=== PATIENT | female | born 1950 | race Caucasian/White ===

== ENCOUNTER 2019-02-08 21:52 | Inpatient (IN) ==
[2019-02-08 22:22] LABS: Basophils # 0.1 K/mm3 (0-0.2); Basophils % 0.3 % (0.1-2.0); Eosinophils % 0.2 % (0.1-12.0); Hematocrit 34.9 % (37.0-47.0); Hemoglobin 10.5 g/dL (12.2-16.2); Lymphocytes # 1.9 K/mm3 (0.7-4.5); Lymphocytes % 10.5 % (10-50); Mean Corpuscular HGB Conc 30.2 g/dL (31.8-35.4); Mean Corpuscular Volume 75.2 fl (81-99); Mean Platelet Volume 7.5 fl (7.4-10.4); Monocytes # 1.8 K/mm3 (0.1-1.0); Monocytes % 10.1 % (1.7-9.3); Neutrophils # 13.9 K/mm3 (1.8-7.8); Neutrophils % 78.8 % (37.0-80.0); Platelet Count 464 K/mm3 (142-424); Red Blood Count 4.64 M/mm3 (4.20-5.40); White Blood Count 17.7 K/mm3 (4.8-10.8)
[2019-02-08 22:32] LABS: Alanine Aminotransferase 17 U/L (12-78); Albumin Level 1.2 gm/dL (3.4-5.0); Albumin/Globulin Ratio 0.2 (1.1-1.8); Alkaline Phosphatase 178 U/L (46-116); Anion Gap 11.4 mEq/L (5-15); Aspartate Amino Transferase 22 U/L (15-37); Bilirubin,Total 0.4 mg/dL (0.2-1.0); Blood Urea Nitrogen 11 mg/dL (7-18); Calcium 7.5 mg/dL (8.5-10.1); Carbon Dioxide 28 mmol/L (21.0-32.0); Chloride 90 mmol/L (98-107); Glucose 240 mg/dL (74-106); Sodium 126 mmol/L (136-145); Total Protein,Serum 7.2 gm/dL (6.4-8.2)
[2019-02-08 22:37] LABS: Anisocytosis 1+; Lymphocytes % 11 % (10-50); Monocytes % 1 % (2-9); Neutrophils % 88 % (42-76); Total Cells Counted 100
[2019-02-08 22:38] LABS: Hypochromasia 1+
[2019-02-09] LABS: C-Reactive Protein 13.7 mg/dL (0.0-0.9)
[2019-02-09 00:03] LABS: Microscopic, Urine URINE MICROSCOPIC (MICROSCOPIC)
[2019-02-09 00:04] LABS: Appearance,Urine CLEAR (Clear); Bilirubin,Urine Negative (Negative); Blood, Urine Negative (Negative); Color,Urine YELLOW (Yellow); Glucose,Urine (UA) Negative (Negative); Ketones,Urine Negative (Negative); Leukocyte Esterase,Urine Negative (Negative); Protein,Urine Negative (Negative); Specific Gravity, Urine 1.015 (1.005-1.030); Urobilinogen,Urine 0.2 EU/dl (0.2)
[2019-02-09 00:05] LABS: Erythrocyte Sedimentation Rate > 140 mm/hr (0-30)
[2019-02-09 00:06] LABS: Bacteria,Urine Trace /lpf; Mucus,Urine 1+ /lpf
--- NOTE | 2019-02-09 01:07 | Emergency Department Note ---
ED Disposition Clinical Impression: Elevated erythrocyte sedimentation rate, VORA (nonalcoholic steatohepatitis), Hyponatremia, Splenomegaly, Portal hypertension, Retroperitoneal lymphadenopathy, HCAP (healthcare-associated pneumonia), Diabetes 1.5, managed as type 2 Sepsis Qualifiers: Sepsis type: sepsis due to unspecified organism Sepsis acute organ dysfunction status: without acute organ dysfunction Qualified Code(s): A41.9 - Sepsis, un specified organism Ascites Qualifiers: Ascites type: other type Qualified Code(s): R18.8 - Other ascites Anemia Qualifiers: Anemia type: unspecified type Qualified Code(s): D64.9 - Anemia, unspecified Disposition: Admitted As Inpatient Condition on Discharge: Fair Referrals: Katheryn Villa APRN [Primary Care Provider] - - Critical Care Critical Care Time: No Attestation: On 02/08/19, the high probability of a clinically significant, sudden or life threatening deterioration of the following system(s) required my full and direct attention, intervention and personal management. The time I documented below is in addition to time spent performing reported procedures but includes the following listed in this critical care notation. Medical Decision Making - Medical Records Medical records reviewed: Yes: I reviewed the patient's medical records. - Ishan Inquiry Pt receiving controlled substance: No Vital Signs: 02/08/19 22:02 02/09/19 00:29 02/09/19 01:07 Temperature 98.8 F Temperature Source Oral Pulse Rate [Right Brachial] 115 H 106 H 102 H Respiratory Rate 18 16 16 Blood Pressure [Right Arm] 134/77 111/65 112/69 Blood Pressure Mean [Right Arm] 96 80 83 Blood Pressure Source [Right Arm] Automatic Cuff Automatic Cuff Automatic Cuff Blood Pressure Position [Right Arm] Sitting Sitting Sitting 02 Sat by Pulse Oximetry 98 95 96 Oxygen Delivery Method Room Air Room Air Room Air - Lab Data Lab results reviewed: Yes: I reviewed the patient's lab results. Lab Results 02/08/19 22:06: WBC 17.7 H, RBC 4.64, Hgb 10.5 L, Hct 34.9 L, MCV 75.2 L, MCH 22.7 L, MCHC 30.2 L, RDW 17.0, Plt Count 464 H, MPV 7.5, Neut % (Auto) 78.8, Lymph % (Auto) 10.5, [place] % (Auto) 10.1 H, Eos % (Auto) 0.2, Baso % (Auto) 0.3, Neut # (Auto) 13.9 H, Lymph # (Auto) 1.9, [place] # (Auto) 1.8 H, Eos # (Auto) 0.0, Baso # (Auto) 0.1, Total Counted 100, Neutrophils % (Manual) 88 H, Lymphocytes % (Manual) 11, Monocytes % (Manual) 1 L, Platelet Estimate Normal, Hypochromasia 1+, Anisocytosis 1+, ESR > 140 H 02/08/19 22:06: Sodium 126 L, Potassium 3.4 L, Chloride 90 L, Carbon Dioxide 28, Anion Gap 11.4, BUN 11, Creatinine 0.89, Estimated Creat Clear 61, Estimated GFR 63, Est GFR ( Amer) 76, Glucose 240 H, Calcium 7.5 L, Total Bilirubin 0.4, AST 22, ALT 17, Alkaline Phosphatase 178 H, Troponin I < 0.02, C-Reactive Protein 13.7 H, Total Protein 7.2, Albumin 1.2 L, Globulin 6.0 H, Albumin/Globulin Ratio 0.2 L 02/08/19 23:25: Urine Color Yellow, Urine Appearance Clear, Urine pH 6.0, Ur Specific [place] 1.015, Urine Protein Negative, Urine Glucose (UA) Negative, Urine Ketones Negative, Urine Blood Negative, Urine Nitrate Negative, Urine Bilirubin Negative, Urine Urobilinogen 0.2, Ur Leukocyte Esterase Negative, Urine WBC 3-5, Urine Bacteria Trace, Hyaline Casts 3-5, Urine Mucus 1+ 02/09/19 00:10: Ammonia 11 L 02/09/19 01:00: Lactate 2.4 H Result diagrams: 02/08/19 22:06 02/08/19 22:06 Orders (Tests/Meds): ED MEDICATIONS Generic Name Dose Route Start Last Admin Trade Name Freq PRN Reason Stop Dose Admin Sodium Chloride 1,000 mls @ 999 mls/hr 02/09/19 00:15 02/09/19 00:03 Sod Chlor 0.9% 1000ml Bag IV 02/09/19 01:15 999 mls/hr .Q1H1M DAMIAN Administration Piperacillin Sod/Tazobactam 100 mls @ 200 mls/hr 02/09/19 01:00 02/09/19 00:59 Sod 4.5 gm/ Sodium Chloride IV 02/23/19 00:59 200 mls/hr Q6H DAMIAN Administration Protocol Levofloxacin/Dextrose 750 mg in 150 mls @ 100 mls/hr 02/09/19 01:15 Levofloxacin 750mg/150ml Premix IV 02/23/19 01:14 Q24H DAMIAN Protocol Discontinued Medications Generic Name Dose Route Start Last Admin Trade Name Freq PRN Reason Stop Dose Admin Enoxaparin Sodium 80 mg 02/09/19 01:13 02/09/19 01:15 Lovenox 80mg/0.8ml Syringe SQ 02/09/19 01:14 80 mg ONCE ONE Administration ORDERS Category Date Time Status CT abdomen pelvis wo con Stat Cat Scan 02/08/19 22:09 Ordered Chest XR 2 view (NOT portable) [XR chest 2V] Stat Exams 02/08/19 22:09 Ordered T4 (Thyroxine) Stat Lab 02/09/19 00:00 Received TSH [Thyroid Stimulating Hormone] Stat Lab 02/09/19 00:00 Received Anaerobic Culture+Gram Stain Routine Micro 02/09/19 01:07 Ordered Blood Culture Stat Micro 02/09/19 00:28 Ordered Body Fluid Cult & Gram Stain Routine Micro 02/09/19 01:07 Ordered Urine Culture Routine Micro 02/09/19 00:36 Ordered - Radiology Data #1 Image(s): Chest Image Reviewed: Yes I reviewed the patient's radiology image Preliminary Findings: Abnormal (possible inflitrate ) - CT Data CT Scan: Abdomen, Pelvis Time Received: 01:[address] Reviewed: Yes: I have viewed the radiologist's interpretation Preliminary Findings: Abnormal (see report) - ECG Data Tracing #1 Arrhythmias present: sinus tach Ischemic changes: non-specific ST-T wave changes Weakness HPI - General Chief complaint: Weakness Stated complaint: ams,wEAKNESS Time Seen by Provider: 02/08/19 22:20 Mode of Arrival: Wheelchair Source of Information: Patient, Relative, Medical Record Limitations: No Limitations Description of Symptoms (Recalled from ER Triage Doc. by RN): Daughter advises pt has been declining for the past couple of weeks, with some confusion and weakness. Advises she has a hx of cirrhoiss and feels like her abd is more swollen and distended also. - History of Present Illness HPI Narrative: pt with hx of decline over the last few days with weakness and dec ambulation - has hx of cirrhosis and rt pleural fluid drainge over the last few months MD Complaint: generalized weakness Onset (ago): day(s) Location: generalized Severity: moderate Associated symptoms: denies other symptoms - Related Data Home Medications Medication Instructions Recorded Confirmed Atorvastatin Calcium [Atorvastatin 40 mg PO DAILY 11/13/18 02/08/19 40mg Tab] Furosemide [Furosemide 20mg Tab] 20 mg PO DAILY 11/13/18 02/08/19 Lactulose [Lactulose 10gm/15ml 10 gm PO DAILY 11/13/18 02/08/19 Oral Soln] Omeprazole [Omeprazole 40mg 40 mg PO DAILY 11/13/18 02/08/19 Capsule] Spironolactone 50 mg PO DAILY 11/13/18 02/08/19 Trimethoprim 100 mg PO DAILY 11/13/18 02/08/19 carvedilol 3.125 mg tablet 3.125 mg PO HS tab 11/24/18 02/08/19 duloxetine 30 mg capsule,delayed 30 mg PO DAILY 11/24/18 02/08/19 release metformin 500 mg tablet 500 mg PO BID 11/24/18 02/08/19 oxybutynin chloride 5 mg tablet 5 mg PO BID PRN 11/24/18 02/08/19 oxycodone 5 mg tablet 5 mg PO Q6H PRN tab 11/24/18 02/08/19 rifaximin 550 mg tablet 550 mg PO BID 11/24/18 02/08/19 ropinirole 2 mg tablet 2 mg PO QHS 11/24/18 02/08/19 Apixaban [Eliquis] 5 mg PO BID 02/08/19 02/08/19 Pregabalin [Lyrica 100mg Cap] 100 mg PO BID 02/08/19 02/08/19 diphenhydrAMINE HCl [Benadryl 25mg 25 mg PO HS 02/08/19 02/08/19 Capsule] Allergies Allergy/AdvReac Type Severity Reaction Status Date / Time codeine Allergy Verified 02/08/19 22:09 meperidine [From Demerol] Allergy Verified 02/08/19 22:09 Sulfa (Sulfonamide Allergy Verified 02/08/19 22:09 Antibiotics) H History - Hepatitis A Screen Drug use history?: No High risk sexual behaviors?: No History of sexually transmitted infection?: No Currently employed?: No Childcare worker?: No Do you have indoor plumbing?: Yes Do you have electricity?: Yes Attestation statement:: This patient has been screened for Hepatitis A risk factors. I have reviewed the patient's past medical history: Yes Medical History: Reports:: Depression, Diabetes Mellitus Type 2, Hyperlipidemia, Hypertension Other Medical History: Reports: Liver Disease Other Surgeries: Yes: No Previous Surgery Amputation: No Fractures: No - Social History Smoking Status: Never smoker Alcohol Intake: never Substance Use Type: denies use Occupational Status: retired Housing: house Household Members: spouse - Psychiatric History Pschychiatric History:: Reports:: Depression Family Hx:: No significant family history ROS Obtained: Yes All systems reviewed & no additional complaints - Constitutional Constitutional: Reports as per HPI, Reports fatigue, Denies fever(s), Denies frequent falls, Reports lethargy, Reports weakness - Eyes Eyes: Denies change in vision - ENT Ears, Nose, Mouth, and Throat: Denies sore throat - Cardiovascular Cardiovascular: Denies chest pain, Reports dyspnea - Respiratory Respiratory: No cough - Gastrointestinal Gastrointestingal: Denies: abdominal pain - Genitourinary Female Genitourinary: Denies hematuria - Musculoskeletal Musculoskeletal: Denies joint pain - Integumentary/Breasts Skin/Breast: Denies rash - Neurologic Neurologic: Denies focal weakness, Denies seizure-like activity Physical Exam - General General appearance: alert - Head Head exam: normocephalic - Eye Eye exam: Present: PERRL, EOMI. Absent: scleral icterus - ENT ENT exam: Present: mucous membranes dry - Neck Neck exam: Present: trachea midline - Respiratory Respiratory exam: Present: other (drainage tube rt ). Absent: respiratory distress - Cardiovascular Cardiovascular exam: Present: regular rate, systolic murmur - Abdominal Exam Abdominal exam: Present: soft, tenderness Abdominal tenderness: Present: diffuse, moderate - Extremities Exam Extremities exam: Present: full ROM. Absent: pedal edema, calf tenderness - Neurological Exam Neurological exam: Present: alert, CN II-XII intact - Psychiatric Psychiatric exam: Present: normal affect - Skin Skin exam: Absent: rash
[2019-02-09 01:40] LABS: Thyroid Stimulating Hormone 11.08 uIU/ml (0.358-3.740)
[2019-02-09 05:43] LABS: Basophils % 0.3 % (0.1-2.0); Eosinophils # 0.1 K/mm3 (0.0-0.4); Eosinophils % 0.5 % (0.1-12.0); Hematocrit 31.8 % (37.0-47.0); Hemoglobin 9.7 g/dL (12.2-16.2); Lymphocytes # 1.1 K/mm3 (0.7-4.5); Lymphocytes % 8.9 % (10-50); Mean Corpuscular HGB Conc 30.4 g/dL (31.8-35.4); Mean Corpuscular Volume 74.1 fl (81-99); Mean Platelet Volume 7.4 fl (7.4-10.4); Monocytes % 15.8 % (1.7-9.3); Neutrophils # 9.4 K/mm3 (1.8-7.8); Neutrophils % 74.4 % (37.0-80.0); Platelet Count 370 K/mm3 (142-424); Red Cell Distribution Width 17.2 % (11.5-17.5); White Blood Count 12.6 K/mm3 (4.8-10.8)
[2019-02-09 05:51] LABS: Anion Gap 9.2 mEq/L (5-15); Calcium 7.3 mg/dL (8.5-10.1)
[2019-02-09 05:53] LABS: INR 1.65 (0.9-1.1); Prothrombin Time 16.8 seconds (9.4-11.8)
--- NOTE | 2019-02-09 07:29 | Pharmacy Consult Notes ---
[facility] Pharmacy VTE Monitoring - Patient Demographics Admission date: 02/09/19 Report Date: 02/09/19 Time: 07:29 Allergies/Adverse Reactions: Patient Allergies latex Allergy (Mild, Verified 02/09/19 01:57) codeine Allergy (Verified 02/08/19 22:09) meperidine [From Demerol] Allergy (Verified 02/08/19 22:09) Sulfa (Sulfonamide Antibiotics) Allergy (Verified 02/08/19 22:09) Height: 1.65 m Weight: 77.649 kg Patient Problems: Current Active Problems Sepsis (Acute) Anemia (Acute) Elevated erythrocyte sedimentation rate (Acute) Hyponatremia (Acute) Ascites (Acute) Splenomegaly (Acute) Portal hypertension (Acute) Retroperitoneal lymphadenopathy (Acute) HCAP (healthcare-associated pneumonia) (Acute) Diabetes 1.5, managed as type 2 (Acute) VORA (nonalcoholic steatohepatitis) (Chronic) - VTE Risk Labs: VTE Related Lab Results Hgb 9.7 g/dL (12.2-16.2) L 02/09/19 05:33 Hct 31.8 % (37.0-47.0) L 02/09/19 05:33 Plt Count 370 K/mm3 (142-424) 02/09/19 05:33 PT 16.8 seconds (9.4-11.8) H 02/09/19 05:33 INR 1.65 (0.9-1.1) H 02/09/19 05:33 BUN 11 mg/dL (7-18) 02/09/19 05:33 Creatinine 0.64 mg/dL (0.55-1.02) D 02/09/19 05:33 Estimated Creat Clear 63 mL/min (50-200) 02/09/19 05:33 Was VTE Risk Assessment Performed: Yes VTE Score: 6 VTE Risk Level: Moderate Risk - Prophylaxis VTE Prophylaxis Ordered?: Yes Types of VTE Prophylaxis: TEDS Knee High Location of Applied Device: Bilateral Lower Extremeties - VTE Diagnosis Confirmed Treatment or plan recommended: Continue Current Treatment
--- NOTE | 2019-02-09 11:31 | Electrocardiograph Report ---
APPROVED REPORT Exam: Resting ECG HR:117 bpm ECG Measurements Heart Rate 117 AXES TX 132 P 23 QRSd 76 QRS -1 QT 324 T50 QTc 451 <Conclusion> Sinus tachycardia with fusion complexes Old nonsignificant changes in III Abnormal ECG Electronically signed by : Tahir Dueñas, 02/09/2019 11:31:17
--- NOTE | 2019-02-09 12:13 | Cardiology Report ---
APPROVED REPORT EXAM: Comprehensive 2D, Doppler, and color-flow Echocardiogram Fore[employer] Computer Examiner: Elysia Parra CRT Ht: 5 ft 3 in Wt: 162lbs BSA: 1.77 BP: 112/69 mmHg Indications: murmur 2D Dimensions LVOT 1.74 cm (M/F) 1.5-2.5 M-Mode Dimensions RVDd 2.46 cm (0.9-2.6)LVDd 3.86 cm (3.5-5.7) LVDs 2.81 cm (3.5-5.7)IVSd 1.85 cm (0.6-1.1) PWd 0.88 cm (0.6-1.1)EF (Teich) 53.70% FS 27.20% EDV (Teich) 64.30 mL ESV (Teich) 29.80 mL LV Diastology E/A Ratio 0.66 Mitral Valve MV A Velocity 115.00 (40-130 cm/s) Left Ventricle Left atrium is mildly enlarged, left ventricle is normal size, mild concentric left ventricular hypertrophy, visually estimated ejection fraction 55% with no regional wall motion abnormality. Grade 1 diastolic dysfunction seen without tissue Doppler evidence of raise left atrial pressure. Right Ventricle Right atrium and right ventricular normal size and contractility. Aortic Valve Aortic valve is thickened and calcified, leaflet continue to display good mobility, there is no aortic stenosis aortic insufficiency. Mitral Valve Mitral valve is grossly normal, there is mild mitral regurgitation. Tricuspid Valve Tricuspid valve is grossly normal, there is mild tricuspid regurgitation. Pulmonic Valve Pulmonic valve is poorly visualized. Great Vessels Aortic root is normal size. Pericardium No significant pericardial effusion noted. Conclusion 1. Mildly low left atrium, normal left ventricular size, mild concentric left ventricular hypertrophy, visually estimated ejection fraction 55% with no regional wall motion abnormality, grade 1 diastolic dysfunction. Without tissue Doppler evidence of raise left atrial pressure. 2. Thickened and calcified aortic valve without aortic stenosis or aortic insufficiency. 3. Mild mitral and tricuspid regurgitation 4. No significant pericardial effusion noted. Electronically signed by : Max Brandt, 02/09/2019 12:12:59
--- NOTE | 2019-02-09 15:31 | H&P/Discharge Summary ---
General - General Admission date:: 02/09/19 Discharge date: 02/09/19 *Admission Date: 02/09/19 *Chief complaint: weakness *History of present illness: 69 yr old female presents to ed with hx of decline over the last few days with weakness and dec ambulation - has hx of cirrhosis VORA and rt pleural fluid drainage over the last few [id number] ml every other day. Per daughter pt is independent but over the last few days she has declined and not able to do thing she had before. Per daughter she had lymph nodes bx in [place] and she has been followed up by surgeon at [facility]. Pt admitted for sepsis placed on antibiotics, cultures pending [facility] History I have reviewed the patient's past medical history: Yes Medical History: Reports:: Atrial Fibrillation, Depression, Diabetes Mellitus Type 2, Hyperlipidemia, Hypertension Denies:: Cancer, Diabetes Mellitus Type 1, MRSA *Have you ever received a pneumonia vaccine?: Yes *Have you received a flu vaccine this season?: Yes Other Medical History: Reports: Cataracts, Liver Disease Laterality Cases: Bilateral: Cataract, Total Knee Replacement Other Surgeries: Yes: No Previous Surgery, Appendectomy, Cholecystectomy, Hysterectomy-Total Amputation: No Fractures: No - *Social History Educational Level: Completed High School Smoking Status: Never smoker Alcohol Intake: never Substance Use Type: denies use *Occupational Status:: retired Housing: house Household Members: spouse *Travel in the last 8 weeks: Inside the [place] - Psychiatric History Pschychiatric History:: Reports:: Depression Family Hx:: Cancer, Diabetes Review of Systems - Review of Systems Review of systems:: pertinent systems reviewed and negative unless documented below - Constitutional Reports malaise, Reports weakness, Denies fever(s) - Eyes Denies floaters - ENT Denies nasal discharge - *Cardiovascular Denies chest pain with activity - *Respiratory Denies chest congestion - *Gastrointestinal Denies bloating - *Genitourinary Denies heavy periods - *Musculoskeletal Reports muscle weakness, Denies joint pain - Integumentary/Breasts Denies lesions - *Neurologic Reports weakness, Denies abnormal hearing, Denies localized weakness, Denies frequent falls, Denies seizure-like activity - Psychiatric Denies anxiety, Denies panic attacks - Endocrine Denies excessive sweating - Hematologic/Lymphatic Denies easy bruising - Allergic/Immunologic Denies itchy eyes, Denies tongue swelling Exam Vital signs and Labs for Last 24 Hours: Temp Pulse Resp BP Pulse Ox 98.4 F 102 H 17 108/68 L 94 L 02/09/19 15:00 02/09/19 15:00 02/09/19 15:00 02/09/19 15:00 02/09/19 15:00 Laboratory Results - last 24 hr 02/08/19 22:06: WBC 17.7 H, RBC 4.64, Hgb 10.5 L, Hct 34.9 L, MCV 75.2 L, MCH 22.7 L, MCHC 30.2 L, RDW 17.0, Plt Count 464 H, MPV 7.5, Neut % (Auto) 78.8, Lymph % (Auto) 10.5, [place] % (Auto) 10.1 H, Eos % (Auto) 0.2, Baso % (Auto) 0.3, Neut # (Auto) 13.9 H, Lymph # (Auto) 1.9, [place] # (Auto) 1.8 H, Eos # (Auto) 0.0, Baso # (Auto) 0.1, Total Counted 100, Neutrophils % (Manual) 88 H, Lymphocytes % (Manual) 11, Monocytes % (Manual) 1 L, Platelet Estimate Normal, Hypochromasia 1+, Anisocytosis 1+, ESR > 140 H 02/08/19 22:06: Sodium 126 L, Potassium 3.4 L, Chloride 90 L, Carbon Dioxide 28, Anion Gap 11.4, BUN 11, Creatinine 0.89, Estimated Creat Clear 61, Estimated GFR 63, Est GFR ( Amer) 76, Glucose 240 H, Calcium 7.5 L, Total Bilirubin 0.4, AST 22, ALT 17, Alkaline Phosphatase 178 H, Troponin I < 0.02, C-Reactive Protein 13.7 H, Total Protein 7.2, Albumin 1.2 L, Globulin 6.0 H, Albumin/Globulin Ratio 0.2 L 02/08/19 23:25: Urine Color Yellow, Urine Appearance Clear, Urine pH 6.0, Ur Specific Edwards 1.015, Urine Protein Negative, Urine Glucose (UA) Negative, Urine Ketones Negative, Urine Blood Negative, Urine Nitrate Negative, Urine Bilirubin Negative, Urine Urobilinogen 0.2, Ur Leukocyte Esterase Negative, Urine WBC 3-5, Urine Bacteria Trace, Hyaline Casts 3-5, Urine Mucus 1+ 02/09/19 00:00: TSH 11.08 H, Thyroxine (T4) 6.0 02/09/19 00:10: Ammonia 11 L 02/09/19 01:00: Lactate 2.4 H 02/09/19 05:33: WBC 12.6 H D, RBC 4.30, Hgb 9.7 L, Hct 31.8 L, MCV 74.1 L, MCH 22.5 L, MCHC 30.4 L, RDW 17.2, Plt Count 370, MPV 7.4, Neut % (Auto) 74.4, Lymph % (Auto) 8.9 L, [place] % (Auto) 15.8 H, Eos % (Auto) 0.5, Baso % (Auto) 0.3, Neut # (Auto) 9.4 H, Lymph # (Auto) 1.1, [place] # (Auto) 2.0 H, Eos # (Auto) 0.1, Baso # (Auto) 0.0 02/09/19 05:33: PT 16.8 H, INR 1.65 H 02/09/19 05:33: Sodium 127 L, Potassium 3.2 L, Chloride 94 L, Carbon Dioxide 27, Anion Gap 9.2, BUN 11, Creatinine 0.64 D, Estimated Creat Clear 63, Estimated GFR 91, Est GFR ( Amer) 111 D, Glucose 195 H, Calcium 7.3 L, Magnesium 1.1 L 02/09/19 05:33: Lactate 1.9 02/09/19 05:41: POC Glucose 184 H 02/09/19 12:09: POC Glucose 195 H I & O for Last 24 hours: Intake & Output 02/07/19 02/08/19 02/09/19 02/10/19 11:59 11:59 11:59 11:59 Intake Total 356 / 356 360 / 360 Balance 356 / 356 360 / 360 Weight 171 lb 2.988 oz Microbiology Reports for the Last 24 Hours: Microbiology 02/09/19 01:09 Pleural Fluid - Pleura,Rt Lung Gram Stain - Final - Constitutional no acute distress, thin, chronically ill appearing - *Routine HEENT Exam Head: Present: normocephalic Eye: Present: PERRL ENT: Present: mucous membranes moist - *Routine Neck Exam Present: supple. Absent: lymphadenopathy - *Routine Respiratory Exam Present: CTA bilaterally Comments: drain to left chest/abd dressing c/d/i - *Routine Cardiovascular Exam Present: RRR - *Routine Abdominal Exam Present: soft, normoactive bowel sounds. Absent: tenderness - *Routine Extremities Exam Present: full ROM, normal capillary refill. Absent: cyanosis, clubbing, edema - *Routine Skin Exam Present: warm. Absent: rash - *Routine Neurological Exam Present: alert, oriented X3 - Routine Psychiatric Exam Present: normal affect Hospital Course Hospital Course: echo:Conclusion 1. Mildly low left atrium, normal left ventricular size, mild concentric left ventricular hypertrophy, visually estimated ejection fraction 55% with no regional wall motion abnormality, grade 1 diastolic dysfunction. Without tissue Doppler evidence of raise left atrial pressure. 2. Thickened and calcified aortic valve without aortic stenosis or aortic insufficiency. 3. Mild mitral and tricuspid regurgitation 4. No significant pericardial effusion noted. ct abd pelvis;IMPRESSION: 1. Moderate-sized right pleural effusion with atelectatic changes of the right lower lobe and pleural drain present on the right. 2. Cirrhotic appearing liver with splenomegaly and mild diffuse ascites consistent with portal hypertension 3. Mild thickening of the ascending colon which may be seen with portal hypertension/ascites versus colitis. talked with surgeons nurse at [facility] medical records sent to office. dr calvo accepted pt for transfer to [facility]. pt is in need of a level of care not available at our hospital. Results Labs on day of discharge: Labs from last 24 hours 02/09/19 02/09/19 02/09/19 12:09 05:41 05:33 WBC RBC Hgb Hct MCV MCH MCHC RDW Plt Count MPV Neut % (Auto) Lymph % (Auto) [place] % (Auto) Eos % (Auto) Baso % (Auto) Neut # (Auto) Lymph # (Auto) [place] # (Auto) Eos # (Auto) Baso # (Auto) Total Counted Neutrophils % (Manual) Lymphocytes % (Manual) Monocytes % (Manual) Platelet Estimate Hypochromasia Anisocytosis ESR PT INR Sodium Potassium Chloride Carbon Dioxide Anion Gap BUN Creatinine Estimated Creat Clear Estimated GFR Est GFR ( Amer) Glucose POC Glucose 195 H 184 H Lactate 1.9 Calcium Magnesium Total Bilirubin AST ALT Alkaline Phosphatase Ammonia Troponin I C-Reactive Protein Total Protein Albumin Globulin Albumin/Globulin Ratio TSH Thyroxine (T4) Urine Color Urine Appearance Urine pH Ur Specific Edwards Urine Protein Urine Glucose (UA) Urine Ketones Urine Blood Urine Nitrate Urine Bilirubin Urine Urobilinogen Ur Leukocyte Esterase Urine WBC Urine Bacteria Hyaline Casts Urine Mucus 02/09/19 02/09/19 02/09/19 05:33 05:33 05:33 WBC 12.6 H D RBC 4.30 Hgb 9.7 L Hct 31.8 L MCV 74.1 L MCH 22.5 L MCHC 30.4 L RDW 17.2 Plt Count 370 MPV 7.4 Neut % (Auto) 74.4 Lymph % (Auto) 8.9 L [place] % (Auto) 15.8 H Eos % (Auto) 0.5 Baso % (Auto) 0.3 Neut # (Auto) 9.4 H Lymph # (Auto) 1.1 [place] # (Auto) 2.0 H Eos # (Auto) 0.1 Baso # (Auto) 0.0 Total Counted Neutrophils % (Manual) Lymphocytes % (Manual) Monocytes % (Manual) Platelet Estimate Hypochromasia Anisocytosis ESR PT 16.8 H INR 1.65 H Sodium 127 L Potassium 3.2 L Chloride 94 L Carbon Dioxide 27 Anion Gap 9.2 BUN 11 Creatinine 0.64 D Estimated Creat Clear 63 Estimated GFR 91 Est GFR ( Amer) 111 D Glucose 195 H POC Glucose Lactate Calcium 7.3 L Magnesium 1.1 L Total Bilirubin AST ALT Alkaline Phosphatase Ammonia Troponin I C-Reactive Protein Total Protein Albumin Globulin Albumin/Globulin Ratio TSH Thyroxine (T4) Urine Color Urine Appearance Urine pH Ur Specific Edwards Urine Protein Urine Glucose (UA) Urine Ketones Urine Blood Urine Nitrate Urine Bilirubin Urine Urobilinogen Ur Leukocyte Esterase Urine WBC Urine Bacteria Hyaline Casts Urine Mucus 02/09/19 02/09/19 02/09/19 01:00 00:10 00:00 WBC RBC Hgb Hct MCV MCH MCHC RDW Plt Count MPV Neut % (Auto) Lymph % (Auto) [place] % (Auto) Eos % (Auto) Baso % (Auto) Neut # (Auto) Lymph # (Auto) [place] # (Auto) Eos # (Auto) Baso # (Auto) Total Counted Neutrophils % (Manual) Lymphocytes % (Manual) Monocytes % (Manual) Platelet Estimate Hypochromasia Anisocytosis ESR PT INR Sodium Potassium Chloride Carbon Dioxide Anion Gap BUN Creatinine Estimated Creat Clear Estimated GFR Est GFR ( Amer) Glucose POC Glucose Lactate 2.4 H Calcium Magnesium Total Bilirubin AST ALT Alkaline Phosphatase Ammonia 11 L Troponin I C-Reactive Protein Total Protein Albumin Globulin Albumin/Globulin Ratio TSH 11.08 H Thyroxine (T4) 6.0 Urine Color Urine Appearance Urine pH Ur Specific Edwards Urine Protein Urine Glucose (UA) Urine Ketones Urine Blood Urine Nitrate Urine Bilirubin Urine Urobilinogen Ur Leukocyte Esterase Urine WBC Urine Bacteria Hyaline Casts Urine Mucus 02/08/19 02/08/19 02/08/19 23:25 22:06 22:06 WBC 17.7 H RBC 4.64 Hgb 10.5 L Hct 34.9 L MCV 75.2 L MCH 22.7 L MCHC 30.2 L RDW 17.0 Plt Count 464 H MPV 7.5 Neut % (Auto) 78.8 Lymph % (Auto) 10.5 [place] % (Auto) 10.1 H Eos % (Auto) 0.2 Baso % (Auto) 0.3 Neut # (Auto) 13.9 H Lymph # (Auto) 1.9 [place] # (Auto) 1.8 H Eos # (Auto) 0.0 Baso # (Auto) 0.1 Total Counted 100 Neutrophils % (Manual) 88 H Lymphocytes % (Manual) 11 Monocytes % (Manual) 1 L Platelet Estimate Normal Hypochromasia 1+ Anisocytosis 1+ ESR > 140 H PT INR Sodium 126 L Potassium 3.4 L Chloride 90 L Carbon Dioxide 28 Anion Gap 11.4 BUN 11 Creatinine 0.89 Estimated Creat Clear 61 Estimated GFR 63 Est GFR ([facility] Amer) 76 Glucose 240 H POC Glucose Lactate Calcium 7.5 L Magnesium Total Bilirubin 0.4 AST 22 ALT 17 Alkaline Phosphatase 178 H Ammonia Troponin I < 0.02 C-Reactive Protein 13.7 H Total Protein 7.2 Albumin 1.2 L Globulin 6.0 H Albumin/Globulin Ratio 0.2 L TSH Thyroxine (T4) Urine Color Yellow Urine Appearance Clear Urine pH 6.0 Ur Specific Edwards 1.015 Urine Protein Negative Urine Glucose (UA) Negative Urine Ketones Negative Urine Blood Negative Urine Nitrate Negative Urine Bilirubin Negative Urine Urobilinogen 0.2 Ur Leukocyte Esterase Negative Urine WBC 3-5 Urine Bacteria Trace Hyaline Casts 3-5 Urine Mucus 1+ - Additional Comments rounded with pacheco all orders per pacheco DS: Diagnosis - Discharge Diagnosis (1) Ascites Status: Acute (2) Diabetes 1.5, managed as type 2 Status: Acute (3) Elevated erythrocyte sedimentation rate Status: Acute (4) Portal hypertension Status: Acute (5) Retroperitoneal lymphadenopathy Status: Acute (6) Sepsis Status: Acute (7) Splenomegaly Status: Acute (8) VORA (nonalcoholic steatohepatitis) Status: Chronic Discharge Plan - Patient Discharge Instructions ACTIVITY: Continue current activity DIET: continue same diet Patient Instructions: Hypertension (Alternative Therapy), Ascites, DI for Ascites, DI for Hyponatremia, Hyponatremia-Adult - Follow up Plan Follow up with: Katheryn Villa APRN [Primary Care Provider] - Disposition: Xfer Short-Term Hosp Home Medications: Home Medications Medication Instructions Recorded Confirmed Type Atorvastatin Calcium [Atorvastatin 40 mg PO HS 11/13/18 02/09/19 History 40mg Tab] Furosemide [Furosemide 20mg Tab] 20 mg PO DAILY 11/13/18 02/09/19 History Lactulose [Lactulose 10gm/15ml 10 gm PO TIDP PRN 11/13/18 02/09/19 History Oral Soln] Omeprazole [Omeprazole 40mg 40 mg PO DAILY 11/13/18 02/09/19 History Capsule] Spironolactone 50 mg PO DAILY 11/13/18 02/09/19 History carvedilol 3.125 mg tablet 3.125 mg PO BID tab 11/24/18 02/09/19 History duloxetine 30 mg capsule,delayed 30 mg PO DAILY 11/24/18 02/09/19 History release metformin 500 mg tablet 500 mg PO BID 11/24/18 02/09/19 History oxybutynin chloride 5 mg tablet 5 mg PO DAILY 11/24/18 02/09/19 History oxycodone 5 mg tablet 5 mg PO Q6H PRN tab 11/24/18 02/08/19 History rifaximin 550 mg tablet 550 mg PO BID 11/24/18 02/09/19 History ropinirole 2 mg tablet 2 mg PO HS 11/24/18 02/09/19 History Apixaban [Eliquis] 5 mg PO BID 02/08/19 02/09/19 History Pregabalin [Lyrica 100mg Cap] 100 mg PO BID 02/08/19 02/09/19 History diphenhydrAMINE HCl [Benadryl 25mg 25 mg PO HS 02/08/19 02/09/19 History Capsule] Ergocalciferol (Vitamin D2) 50,000 units PO WEEKLY 02/09/19 02/09/19 History [Drisdol 50,000 units (1.25mg) capsule] Levothyroxine Sodium 25 mcg PO DAILY 02/09/19 02/09/19 History [Levothyroxine 25mcg (0.025mg) Tab] Prescriptions/Medication Reconciliation: Continued oxycodone 5 mg tablet 5 mg PO Q6H PRN tab PRN Reason: pain duloxetine 30 mg capsule,delayed release 30 mg PO DAILY carvedilol 3.125 mg tablet 3.125 mg PO BID tab metformin 500 mg tablet 500 mg PO BID rifaximin 550 mg tablet 550 mg PO BID ropinirole 2 mg tablet 2 mg PO HS oxybutynin chloride 5 mg tablet 5 mg PO DAILY Spironolactone 50 mg PO DAILY Omeprazole [Omeprazole 40mg Capsule] 40 mg PO DAILY Lactulose [Lactulose 10gm/15ml Oral Soln] 10 gm PO TIDP PRN PRN Reason: Constipation Furosemide [Furosemide 20mg Tab] 20 mg PO DAILY Atorvastatin Calcium [Atorvastatin 40mg Tab] 40 mg PO HS diphenhydrAMINE HCl [Benadryl 25mg Capsule] 25 mg PO HS Apixaban [Eliquis] 5 mg PO BID Levothyroxine Sodium [Levothyroxine 25mcg (0.025mg) Tab] 25 mcg PO DAILY Ergocalciferol (Vitamin D2) [Drisdol 50,000 units (1.25mg) capsule] 50,000 units PO WEEKLY Pregabalin [Lyrica 100mg Cap] 100 mg PO BID - Problem Reconciliation Problems Reviewed?: Yes
--- NOTE | 2019-02-09 17:57 | Cardiology Report ---
APPROVED REPORT Bilateral Lower Extremity Venous Study for [employer]: CT Indications swelling - possible dvt Vein Imaging CFV (R): compressive, spontaneous, phasic, augmentation SFJ (R): compressive, spontaneous, phasic, augmentation FEM (R): compressive, spontaneous, phasic, augmentation POP (R): compressive, spontaneous, phasic, augmentation DFV (R): compressive, spontaneous, phasic, augmentation PTV (R): compressive, spontaneous, phasic, augmentation GSV (R): compressive, spontaneous, phasic, augmentation SSV (R): compressive, spontaneous, phasic, augmentation Peroneals (R):compressive, spontaneous, phasic, augmentation GAS (R): compressive, spontaneous, phasic, augmentation CFV (L): compressive, spontaneous, phasic, augmentation SFJ (L): compressive, spontaneous, phasic, augmentation FEM (L): compressive, spontaneous, phasic, augmentation POP (L): compressive, spontaneous, phasic, augmentation DFV (L): compressive, spontaneous, phasic, augmentation PTV (L): compressive, spontaneous, phasic, augmentation GSV (L): compressive, spontaneous, phasic, augmentation SSV (L): compressive, spontaneous, phasic, augmentation Peroneals (L):compressive, spontaneous, phasic, augmentation GAS (L): compressive, spontaneous, phasic, augmentation Findings Bilateral venous negative for DVT/SVT. Vessels compressible. Conclusion No evidence of DVT or superficial thrombophlebitis in the veins scanned of the right lower extremity. No evidence of DVT or superficial thrombophlebitis in the veins scanned of the left lower extremity. Electronically signed by : Bryan Vazquez MD 02/09/2019 17:57:05
--- OUTSIDE RECORDS SUMMARY | 2019-02-10 15:20 | External Medical Summary | Continuity of Care Document ---
:1950 Author Organization [facility] Address [address] [place] [address] Phone Care Team Providers Name Role Phone Provider Primary Care Provider Unavailable Allen Primary Care Provider Allen Attending Provider Derik Benavidez Attending Provider Allergies, Adverse Reactions, Alerts Allergen Type Severity Reaction Last Verified Status Updated latex Allergy Mild Yes Active codeine Allergy Yes Active meperidine Allergy Yes Active Sulfa Allergy Yes Active (Sulfonamide Antibiotics) Medications Medication Status Dose Units Route Sig Qty Days Start End Instruct ions Date Date Oxycodone Hcl Active 5 MG Oral Q6H November 24, 2018 4:29pm Duloxetine Hcl Active 30 MG Oral Daily November 24, 2018 4:31pm Carvedilol Active 3.125 MG Oral Twice a October 4:31pm Metformin Hcl Active 500 MG Oral Twice a October 4:32pm Oxybutynin Active 5 MG Oral Daily October 4:33pm Rifaximin Active 550 MG Oral Twice a October 4:34pm Ropinirole Hcl Active 2 MG Oral At October bedtime nightly 2018 4:35pm Atorvastatin Active 40 MG Oral At [place] Calcium bedtime 2018 11:43pm Furosemide Active 20 MG Oral Daily November 13, 2018 11:43pm Lactulose Active 10 GM Oral Three October times a as 2019 needed 11:43pm Omeprazole Active 40 MG Oral Daily November 13, 2018 11:43pm Spironolactone Active 50 MG Oral Daily November 13, 2018 11:43pm Apixaban Active 5 MG Oral Twice a January 10:19pm Diphenhydramine Active 25 MG Oral At January Hcl bedtime 2018 10:19pm Pregabalin Active 100 MG Oral Twice a January 10:19pm Levothyroxine Active 25 MCG Oral Daily January 8:23am Ergocalciferol Active 49604 UNITS Oral Weekly January (Vitamin D2) 2018 9:55am Problems Active Problems Medical Problem Onset Date Status History of falling Active Diabetes 1.5, managed as type 2 Active Elevated erythrocyte sedimentation Activ e rate Anemia Active Ascites Active Hyponatremia Active HCAP (healthcare-associated Active pneumonia) Pleural effusion Active Splenomegaly Active Weakness Active Sepsis Active MELGOZA (nonalcoholic steatohepatitis) Acti ve Retroperitoneal lymphadenopathy Active Multiple contusions Active Portal hypertension Active Febrile illness, acute Active Procedures Procedure Date Performed Status CT abdomen pelvis wo con February 08, 2019 completed XR chest AP February 08, 2019 completed ECG initial [place] February 08, 2019 completed Gram Stain February 09, 2019 completed Body Fluid Culture February 09, 2019 active Blood Culture February 09, [address] head/brain wo con January 04, [address] cervical spine w con January 04, 2019 completed XR hand RT min 3V January 04, 2019 completed XR shoulder RT min 2V January 04, 2019 completed XR knee LT 3V January 04, 2019 completed XR knee RT 3V January 04, [address] chest wo con January 04, 2019 completed Urine Culture January 04, 2019 completed XR chest portable November 13, 2018 completed ECG initial [place] November 13, 2018 completed Blood Culture November 13, 2018 completed Relevant Diagnostic Tests and/or Laboratory Data Laboratory Results Test Date/Time Result Interpretation Reference Result Perfo rming Range Comment Site White Blood October 14.7 4.8-10.8 [facility], [address] [place] [address] E Count 2018 K/mm3 [place] [address] 9:15pm White Blood December 6.9 K/mm3 4.8-10.8 [facility], [address] [place] [address] 36 E Count 2018 Hua CINTR[place] 34503 3:58pm White Blood January 12.6 4.8-10.8 Delta: 17.7 [facility], [address] [place] [address] 36 E Count 2018 K/mm3 on Hua CINTRON 86758 5:33am 02/08/19 Red Blood Count October 4.00 4.20-5.40 [facility], [address] [place] [address] 36 E 2018 M/mm3 Hua CINTRON 35281 9:15pm Red Blood Count December 3.84 4.20-5.40 [facility], [address] [place] [address] 36 E 2018 M/mm3 Hua CINTRON 19663 3:58pm Red Blood Count January 4.30 4.20-5.40 [facility], [address] [place] [address] 36 E 2018 M/mm3 Hua CINTR[place] 73208 5:33am Hemoglobin October 9.7 g/dL 12.2-16.2 [facility], [address] [place] [address] 36 E 2018 Hua C[place] 82168 9:15pm Hemoglobin December 8.6 g/dL 12.2-16.2 [facility], [address] [place] [address] 36 E 2018 Hua CINTR[place] 86986 3:58pm Hemoglobin January 9.7 g/dL 12.2-16.2 [facility], [address] [place] [address] 36 E 2018 Hua CINTR[place] 23801 5:33am Hematocrit October 31.8 % 37.0-47.0 [facility], [address] [place] [address] 36 E 2018 Hua CINTR[place] 72829 9:15pm Hematocrit December 29.8 % 37.0-47.0 [facility], [address] [place] [address] 36 E 2018 uHa CINTRON 96468 3:58pm Hematocrit January 31.8 % 37.0-47.0 [facility], [address] [place] [address] 36 E 2018 Hua CINTR[place] 92501 5:33am Mean Corpuscular [place] 79.6 fl 81-99 [facility], [address] [place] [address] E Volume 2018 [place] [address] 9:15pm Mean Corpuscular October 77.6 fl 81-99 [facility], [address] [place] [address] E Volume 2018 [place] [address] 3:58pm Mean Corpuscular January 74.1 fl 81-99 [facility], [address] [place] [address] E Volume 2018 [place] [address] 5:33am Mean Corpuscular [place] 24.4 pg 27.0-31.2 [facility], [address] [place] [address] E Hemoglobin 2018 Cynraymond CINTRON 42941 9:15pm Mean Corpuscular October 22.5 pg 27.0-31.2 [facility], [address] [place] [address] E Hemoglobin 2018 [place] [address] 3:58pm Mean Corpuscular January 22.5 pg 27.0-31.2 [facility], [address] [place] [address] E Hemoglobin 2018 Cynraymond CINTRON 97383 5:33am Mean Corpuscular [place] 30.6 g/dL 31.8-35.4 [facility], [address] [place] [address] E Hemoglobin 2018 Cynraymond CINTRON 48364 Concent 9:15pm Mean Corpuscular December 28.9 g/dL 31.8-35.4 [facility], [address] [place] [address] E Hemoglobin 2018 [place] [address] Concent 3:58pm Mean Corpuscular January 30.4 g/dL 31.8-35.4 [facility], [address] [place] [address] E Hemoglobin 2018 Cynraymond CINTRON 67691 Concent 5:33am Red Cell October 16.4 % 11.5-17.5 [facility], [address] [place] [address] E Distribution 2018 Herminia CINTRON 40876 Width 9:15pm Red Cell December 17.2 % 11.5-17.5 [facility], [address] [place] [address] E Distribution 2018 Yanci CINTRON 68022 Width 3:58pm Red Cell January 17.2 % 11.5-17.5 [facility], [address] [place] [address] E Distribution 2018 Herminia CINTRON 12896 Width 5:33am Platelet Count October 348 K/mm3 142-424 [facility], [address] [place] [address] 36 E 2018 Hua CINTRON 19409 9:15pm Platelet Count December 410 K/mm3 142-424 [facility], [address] [place] [address] 36 E 2018 Hua CINTRON 19411 3:58pm Platelet Count January 370 K/mm3 142-424 [facility], [address] [place] [address] E 2018 Hua CINTR[place] 47512 5:33am Mean Platelet October 7.2 fl 7.4-10.4 [facility], [address] [place] [address] E Volume 2018 Hua CINTRON 69845 9:15pm Mean Platelet December 8.0 fl 7.4-10.4 [facility], [address] [place] [address] E Volume 2018 Hua CINTR[place] 38919 3:58pm Mean Platelet January 7.4 fl 7.4-10.4 [facility], [address] [place] [address] E Volume 2018 Hua CINTRON 09176 5:33am Neutrophils (%) October 81.7 % 37.0-80.0 [facility], [address] [place] [address] E (Auto) 2018 Hua CINTRON 85485 9:15pm Neutrophils (%) December 76.4 % 37.0-80.0 [facility], [address] [place] [address] E (Auto) 2018 Hua CINTR[place] 07577 3:58pm Neutrophils (%) January 74.4 % 37.0-80.0 [facility], [address] [place] [address] E (Auto) 2018 Hua CINTR[place] 39141 5:33am Lymphocytes (%) October 11.7 % 10-50 [facility], [address] [place] [address] E (Auto) 2018 Hua CINTRON 12777 9:15pm Lymphocytes (%) December 15.5 % 10-50 [facility], [address] [place] [address] E (Auto) 2018 Hua CINTRON 12992 3:58pm Lymphocytes (%) January 8.9 % 10-50 [facility], [address] [place] [address] E (Auto) 2018 [place] [address] 5:33am Monocytes (%) October 4.7 % 1.7-9.3 [facility], [address] [place] [address] E (Auto) 2018 [place] [address] 9:15pm Monocytes (%) December 5.8 % 1.7-9.3 [facility], [address] [place] [address] E (Auto) 2018 [place] [address] 3:58pm Monocytes (%) January 15.8 % 1.7-9.3 [facility], [address] [place] [address] E (Auto) 2018 [place] [address] 5:33am Eosinophils (%) October 1.6 % 0.1-12.0 [facility], [address] [place] [address] E (Auto) 2018 [place] [address] 9:15pm Eosinophils (%) December 1.6 % 0.1-12.0 [place] [address] E (Auto) 2018 [place] [address] 3:58pm Eosinophils (%) January 0.5 % 0.1-12.0 [place] [address] E (Auto) 2018 [place] [address] 5:33am Basophils (%) October 0.3 % 0.1-2.0 [place] [address] E (Auto) 2018 [place] [address] 9:15pm Basophils (%) December 0.6 % 0.1-2.0 [facility], [address] [place] [address] E (Auto) 2018 [place] [address] 3:58pm Basophils (%) January 0.3 % 0.1-2.0 [facility], [address] [place] [address] E (Auto) 2018 [place] [address] 5:33am Neutrophils # October 12.0 1.8-7.8 [place] [address] E (Auto) 2018 K/mm3 [place] [address] 9:15pm Neutrophils # December 5.3 K/mm3 1.8-7.8 [place] [address] E (Auto) 2018 [place] [address] 3:58pm Neutrophils # January 9.4 K/mm3 1.8-7.8 [facility], [address] [place] [address] E (Auto) 2018 [place] [address] 5:33am Lymphocytes # October 1.7 K/mm3 0.7-4.5 [facility], [address] [place] [address] E (Auto) 2018 [place] [address] 9:15pm Lymphocytes # December 1.1 K/mm3 0.7-4.5 [facility], [address] [place] [address] E (Auto) 2018 [place] [address] 3:58pm Lymphocytes # November 1.1 K/mm3 0.7-4.5 [facility], [address] [place] [address] E (Auto) 2018 [place] [address] 5:33am Monocytes # October 0.7 K/mm3 0.1-1.0 [facility], [address] [place] [address] E (Auto) 2018 [place] [address] 9:15pm Monocytes # December 0.4 K/mm3 0.1-1.0 [facility], [address] [place] [address] E (Auto) 2018 [place] [address] 3:58pm Monocytes # January 2.0 K/mm3 0.1-1.0 [facility], [address] [place] [address] E (Auto) 2018 [place] [address] 5:33am Eosinophils # October 0.2 K/mm3 0.0-0.4 [facility], [address] [place] [address] E (Auto) 2018 [place] [address] 9:15pm Eosinophils # December 0.1 K/mm3 0.0-0.4 [facility], [address] [place] [address] E (Auto) 2018 [place] [address] 3:58pm Eosinophils # January 0.1 K/mm3 0.0-0.4 [facility], [address] [place] [address] E (Auto) 2018 [place] [address] 5:33am Basophils # October 0.0 K/mm3 0-0.2 [facility], [address] [place] [address] E (Auto) 2018 [place] [address] 9:15pm Basophils # December 0.0 K/mm3 0-0.2 [facility], [address] [place] [address] 36 E (Auto) 2018 [place] [address] 3:58pm Basophils # January 0.0 K/mm3 0-0.2 [facility], [address] [place] [address] E (Auto) 2018 [place] [address] 5:33am Differential January [facility], [address] [place] [address] E Total Cells 2018 Yanci dandre [place] [address] Counted 10:06pm Neutrophils % January 88 % 42-76 [facility], [address] [place] [address] E (Manual) 2018 Hua CINTR[place] 77747 10:06pm Lymphocytes % January 11 % 10-50 [facility], [address] [place] [address] E (Manual) 2018 Hua CINTR[place] 04859 10:06pm Monocytes % January 1 % 2-9 [facility], [address] [place] [address] E (Manual) 2018 Hua C[place] 54476 10:06pm Platelet January Normal [facility], [address] [place] [address] E Estimate 2018 Hua CINTR[place] 96697 10:06pm Hypochromasia January 27+ [facility], [address] [place] [address] E 2018 Hua C[place] 33112 10:06pm Anisocytosis January 27+ [facility], [address] [place] [address] E 2018 Hua C[place] 72312 10:06pm Erythrocyte October 111 mm/hr 0-30 [facility], [address] [place] [address] E Sedimentation 2018 Sandy CINTR[place] 37233 Rate 9:15pm Erythrocyte January > 140 0-30 [facility], [address] [place] [address] E Sedimentation 2018 mm/hr Sandy CINTRON 11777 Rate 10:06pm Prothrombin Time October 15.4 9.4-11.8 [facility], [address] [place] [address] E 2018 seconds Hua CINTRON 41433 9:15pm Prothrombin Time January 16.8 9.4-11.8 [facility], [address] [place] [address] E 2018 seconds Hua CINTRON 64530 5:33am Prothromb Time October 1.51 0.9-1.1 [facility], [address] [place] [address] 36 E International 182018 INDICATION Arvind CINTRON 44087 Ratio 9:15pm INR RANGETherapy for DVT, PE, Atrial Fib, 2.0-3.0Prophy laxis for VTE.Therapy for Mechanical Heart Valve, 2.5-3.5Preven tion of Sytemic Emolism secondary to AMI. Prothromb Time January 1.65 0.9-1.1 [facility], [address] [place] [address] E International 2018 INDICATION Cyntika CINTRON 09675 Ratio 5:33am INR RANGETherapy for DVT, PE, Atrial Fib, 2.0-3.0Prophy laxis for VTE.Therapy for Mechanical Heart Valve, 2.5-3.5Preven tion of Sytemic Emolism secondary to AMI. Urine Color December Yellow Yellow [facility], [address] [place] [address] 36 E 2018 [place] [address] 3:53pm Urine Color January Yellow Yellow [facility], [address] [place] [address] 36 E 2018 [place] [address] 11:25pm Urine Appearance December Clear Clear [facility], [address] [place] [address] 36 E 2018 [place] [address] 3:53pm Urine Appearance January Clear Clear [facility], [address] [place] [address] 36 E 2018 [place] [address] 11:25pm Urine pH December 6.0 5.0-8.5 [facility], [address] [place] [address] 36 E 2018 [place] [address] 3:53pm Urine pH January 6.0 5.0-8.5 [facility], [address] [place] [address] 36 E 2018 [place] [address] 11:25pm Urine Specific December 1.020 1.005-1.03 [facility], [address] [place] [address] 36 E Bevier 2018 0 [place] [address] 3:53pm Urine Specific January 1.015 1.005-1.03 [facility], [address] [place] [address] 36 E Bevier 2018 0 [place] [address] 11:25pm Urine Protein December Negative Negative [facility], [address] [place] [address] 36 E 2018 Hua CINTR[place] 84021 3:53pm Urine Protein November Negative Negative [facility], [address] [place] [address] 36 E 2018 Hua C[place] 75289 11:25pm Urine Glucose October Trace Negative [facility], [address] [place] [address] 36 E (UA) 2018 Hua C[place] 64631 3:53pm Urine Glucose November Negative Negative [facility], [address] [place] [address] E (UA) 2018 Hua C[place] 79845 11:25pm Urine Ketones October Negative Negative [facility], [address] [place] [address] 36 E 2018 Hua C[place] 21151 3:53pm Urine Ketones November Negative Negative [facility], [address] [place] [address] 36 E 2018 Hua C[place] 04627 11:25pm Urine Blood October Negative Negative [facility], [address] [place] [address] 36 E 2018 Hua C[place] 42485 3:53pm Urine Blood November Negative Negative [facility], [address] [place] [address] 36 E 2018 Hua C[place] 43195 11:25pm Urine Nitrate October Negative Negative [facility], [address] [place] [address] 36 E 2018 Hua C[place] 96006 3:53pm Urine Nitrate November Negative Negative [facility], [address] [place] [address] 36 E 2018 Hua C[place] 61035 11:25pm Urine Bilirubin October Negative Negative [facility], [address] [place] [address] 36 2018 Hua C[place] 40980 3:53pm Urine Bilirubin November Negative Negative [facility], [address] [place] [address] 36 2018 Hua C[place] 21767 11:25pm Urine October 0.2 EU/dl [facility], [address] [place] [address] 36 E Urobilinogen 2018 Yanci CINTRON 18996 3:53pm Urine November 0.2 EU/dl [facility], [address] [place] [address] 36 E Urobilinogen 2018 Herminia CINTRON 75948 11:25pm Urine Leukocyte October 2+ Negative [facility], [address] [place] [address] 36 E Esterase 2018 Hua C[place] 02743 3:53pm Urine Leukocyte November Negative Negative [facility], [address] [place] [address] 36 E Esterase 2018 Hua C[place] 31109 11:25pm Urine RBC December 31- [facility], [address] [place] [address] 36 E 2018 #/[place] [address] 3:53pm Urine WBC January 15- [facility], [address] [place] [address] 36 E 2018 #/[place] [address] 3:53pm Urine WBC January 29- #/hpf [facility], [address] [place] [address] 36 E 2018 [place] [address] 11:25pm Urine Squamous December 29- #/hpf [facility], [address] [place] [address] 36 E Epithelial Cells 2018 Tasneem thiryan CINTRON 34515 3:53pm Urine Bacteria December 2+ /lpf NONE [facility], [address] [place] [address] 36 E 2018 [place] [address] 3:53pm Urine Bacteria January Trace NONE [facility], [address] [place] [address] 36 E 2018 /[place] [address] 11:25pm Urine Hyaline January 29- #/lpf [facility], [address] [place] [address] 36 E Casts 2018 [place] [address] 11:25pm Urine Mucus January 1+ /lpf None [facility], [address] [place] [address] 36 E 2018 [place] [address] 11:25pm Troponin I October < 0.02 0.00-0.06 *ALERT* [facility], [address] [place] [address] 36 E 2018 ng/[place] [address] 9:15pm Biotin can falsely depress Troponin results.Many dietary supplements promoted for hair,skin, and nail benefits contain biotin levels up to 650 times the recommended daily intake of biotin. In additon to dietary supplements, Biotin is occasionally prescribed for medical conditions. Troponin I January < 0.02 0.00-0.06 *ALERT* [facility], [address] [place] [address] 36 E 2018 ng/[place] [address] 10:06pm Biotin can falsely depress Troponin results.Many dietary supplements promoted for hair,skin, and nail benefits contain biotin levels up to 650 times the recommended daily intake of biotin. In additon to dietary supplements, Biotin is occasionally prescribed for medical conditions. Sodium Level October 128 136-145 [facility], [address] [place] [address] 36 E 2018 mmol/L Hua CINTR[place] 37750 9:15pm Sodium Level December 133 136-145 [facility], [address] [place] [address] 36 E 2018 mmol/L Hua CINTR[place] 69250 3:58pm Sodium Level January 127 136-145 [facility], [address] [place] [address] 36 E 2018 mmol/L Hua CINTR[place] 73022 5:33am Potassium Level October 3.8 3.5-5.1 [facility], [address] [place] [address] 36 E 2018 mmoL/L Hua CINTRON 11016 9:15pm Potassium Level December 3.1 3.5-5.1 [facility], [address] [place] [address] 36 E 2018 mmoL/L Hua CINTR[place] 06099 3:58pm Potassium Level January 3.2 3.5-5.1 [facility], [address] [place] [address] 36 E 2018 mmoL/L Hua CINTRON 85342 5:33am Chloride Level October 93 mmol/L -107 [facility], [address] [place] [address] 36 E 2018 Hua CINTR[place] 14149 9:15pm Chloride Level December 96 mmol/L 98-107 [facility], [address] [place] [address] 36 E 2018 Hua CINTR[place] 34620 3:58pm Chloride Level January 94 mmol/L 98-107 [facility], [address] [place] [address] 36 E 2018 Hua CINTR[place] 25434 5:33am Carbon Dioxide October 29 mmol/L 21.0-32.0 [facility], [address] [place] [address] E Level 2018 [place] [address] 9:15pm Carbon Dioxide December 31 mmol/L 21.0-32.0 [facility], [address] [place] [address] E Level 2018 Hua CINTR[place] 62577 3:58pm Carbon Dioxide January 27 mmol/L 21.0-32.0 [facility], [address] [place] [address] E Level 2018 Hua CINTRON 49900 5:33am Anion Gap October 9.8 mEq/L 5-15 [facility], [address] [place] [address] 36 E 2018 [place] [address] 9:15pm Anion Gap December 9.1 mEq/L 08-10 [facility], [address] [place] [address] 36 E 2018 [place] [address] 3:58pm Anion Gap January 9.2 mEq/L 08-10 [facility], [address] [place] [address] 36 E 2018 [place] [address] 5:33am Blood Urea October 8 mg/dL 10-13 [facility], [address] [place] [address] 36 E Nitrogen 2018 [place] [address] 9:15pm Blood Urea December 13 mg/dL 10-13 [facility], [address] [place] [address] E Nitrogen 2018 [place] [address] 3:58pm Blood Urea January 11 mg/dL 10-13 [facility], [address] [place] [address] E Nitrogen 2018 Hua C[place] 53987 5:33am Creatinine October 0.89 0.55-1.02 [facility], [address] [place] [address] 36 E 2018 mg/dL Hua CINTR[place] 64024 9:15pm Creatinine December 0.75 0.55-1.02 [facility], [address] [place] [address] 36 E 2018 mg/dL Hua CINTR[place] 95112 3:58pm Creatinine January 0.64 0.55-1.02 Delta: 0.89 [facility], [address] [place] [address] 36 E 2018 mg/dL on Hua CINTRON 31946 5:33am 02/08/19 Estimated October 64 mL/min 0-300 [facility], [address] [place] [address] 36 E Creatinine 2018 Cynraymond CINTRON 18743 Clearance 9:15pm Estimated December 63 mL/min 0-300 [facility], [address] [place] [address] 36 E Creatinine 2018 [place] [address] Clearance 3:58pm Estimated January 63 mL/min 0-300 [facility], [address] [place] [address] 36 E Creatinine 2018 Cyngabrielan berenice CINTRON 21717 Clearance 5:33am Estimated GFR October 76 ML/MIN >59 [facility], [address] [place] [address] 36 E (2018 Hua CINTRON 57206 [place]) 9:15pm Estimated GFR December 92 ML/MIN >59 [facility], [address] [place] [address] 36 E (2018 [place] [address] [place]) 3:58pm Estimated GFR January 111 >59 Delta: 76 on [facility], [address] [place] [address] 36 E (2018 ML/MIN 02/08/19-2205 Cyndejah CINTRON 48348 [place]) 5:33am Estimat October 63 ml/min >59 [facility], [address] [place] [address] 36 E Glomerular 2018 Herminiaan berenice [place] [address] Filtration Rate 9:15pm Estimat December 76 ml/min >59 [facility], [address] [place] [address] 36 E Glomerular 2018 [place] [address] Filtration Rate 3:58pm Estimat January 91 ml/min >59 [facility], [address] [place] [address] E Glomerular 2018 Herminiaan berenice CINTRON 65489 Filtration Rate 5:33am Glucose Level October 213 mg/dL 74-106 [facility], [address] [place] [address] 36 E 2018 [place] 97720 9:15pm Glucose Level December 236 mg/dL 74-106 [facility] [facility], [address] [place] [address] 36 E 2018 [place] SAIDA 08758 3:58pm Glucose Level January 195 mg/dL 74-106 [facility], [address] [place] [address] 36 E 2018 [place] 02089 5:33am Bedside Glucose January 183 70-110 [place]-Car 2018 e (RALS) 4:25pm Lactate January 1.9 0.4-2.0 [facility], [address] [place] [address] 36 E 2018 Hua SAIDA 41691 5:33am Lactate October 2.4 0.4-2.0 An elevated [facility], [address] [place] [address] 36 E 2018 mmol/L Lactic Acid Yanci dandre CINTRON 97724 9:46pm is suggestive of sepsis and should be repeated within 6 hours of initial testing. Calcium Level October 8.5 mg/dL 8.5-10.1 [facility], [address] [place] [address] 36 E 2018 Hua CINTRON 23421 9:15pm Calcium Level December 8.3 mg/dL 8.5-10.1 [facility], [address] [place] [address] 36 E 2018 Hua CINTRON 90228 3:58pm Calcium Level January 7.3 mg/dL 8.5-10.1 [facility], [address] [place] [address] 36 E 2018 Hua CINTRON 33881 5:33am Magnesium Level January 1.1 mg/dL 1.4-2.2 [facility], [address] [place] [address] 36 E 2018 Hua CINTRON 92497 5:33am Total Bilirubin October 0.7 mg/dL 0.2-1.0 [facility], [address] [place] [address] 36 E 2018 Hua CINTRON 88155 9:15pm Total Bilirubin December 0.3 mg/dL 0.2-1.0 [facility], [address] [place] [address] 36 E 2018 Hua CINTRON 68450 3:58pm Total Bilirubin January 0.4 mg/dL 0.2-1.0 [facility], [address] [place] [address] 36 E 2018 Hua CINTRON 29842 10:06pm Aspartate Amino October 18 U/L [facility], [address] [place] [address] 36 E Transf 2018 Hua CINTRON 91380 (AST/SGOT) 9:15pm Aspartate Amino December 14 U/L [facility], [address] [place] [address] 36 E Transf 2018 Hua CINTRON 50822 (AST/SGOT) 3:58pm Aspartate Amino January 22 U/L [facility], [address] [place] [address] 36 E Transf 2018 Hua CINTRON 08770 (AST/SGOT) 10:06pm Alanine October 19 U/L [facility], [address] [place] [address] 36 E Aminotransferase 2018 Wiley nikky CINTRON 18780 (ALT/SGPT) 9:15pm Alanine December 17 U/L [facility], [address] [place] [address] 36 E Aminotransferase 2018 Tasneem CINTRON 23287 (ALT/SGPT) 3:58pm Alanine November 17 U/L 12-78 [facility], [address] [place] [address] 36 E Aminotransferase 2018 Wiley nikky CINTRON 95226 (ALT/SGPT) 10:06pm Ammonia January 11 umol/L 19-54 [facility], [address] [place] [address] 36 E 2018 Hua CINTRON 95213 12:10am C-Reactive October 11.2 0.0-0.9 [facility], [address] [place] [address] E Protein 2018 mg/dL Hua CINTRON 56134 9:15pm C-Reactive January 13.7 0.0-0.9 [facility], [address] [place] [address] E Protein 2018 mg/dL Hua CINTRON 28098 10:06pm Total Protein October 8.5 gm/dL 6.4-8.2 [facility], [address] [place] [address] 36 E 2018 Hua CINTRON 02442 9:15pm Total Protein December 7.4 gm/dL 6.4-8.2 [facility], [address] [place] [address] 36 E 2018 Hua CINTRON 68400 3:58pm Total Protein January 7.2 gm/dL 6.4-8.2 [facility], [address] [place] [address] 36 2018 Hua CINTRON 71635 10:06pm Albumin October 1.5 gm/dL 3.4-5.0 [facility], [address] [place] [address] 36 2018 Hua CINTRON 53946 9:15pm Albumin December 1.6 gm/dL 3.4-5.0 [facility], [address] [place] [address] 36 2018 Hua CINTRON 09300 3:58pm Albumin January 1.2 gm/dL 3.4-5.0 [facility], [address] [place] [address] 36 E 2018 [place] [address] 10:06pm Globulin October 7.0 gm/dl 1.3-3.2 [facility], [address] [place] [address] 36 E 2018 [place] [address] 9:15pm Globulin December 5.8 gm/dl 1.3-3.2 [facility], [address] [place] [address] 36 E 2018 Hua CINTRON 92333 3:58pm Globulin January 6.0 gm/dl 1.3-3.2 [facility], [address] [place] [address] E 2018 Hua CINTRON 76832 10:06pm Albumin/Globulin October 0.2 1.1-1.8 [facility], [address] [place] [address] E Ratio 2018 Hua CINTRON 75527 9:15pm Albumin/Globulin December 0.3 1.1-1.8 [facility], [address] [place] [address] E Ratio 2018 Hua CINTRON 26442 3:58pm Albumin/Globulin January 0.2 1.1-1.8 [facility], [address] [place] [address] E Ratio 2018 Hua CINTRON 21720 10:06pm Alkaline October 145 U/L 46-116 [facility], [address] [place] [address] E Phosphatase 2018 Yanci CINTRON 45642 9:15pm Alkaline December 170 U/L 46-116 [facility], [address] [place] [address] E Phosphatase 2018 Latesha CINTRON 97712 3:58pm Alkaline January 178 U/L 46-116 [facility], [address] [place] [address] E Phosphatase 2018 Yanci CINTRON 44474 10:06pm Thyroxine (T4) January 6.0 ug/dl 4.7-13.3 [facility], [address] [place] [address] 36 E 2018 Hua CINTRON 00754 12:00am Thyroid January 11.08 0.358-3.74 Please note [facility], [address] [place] [address] E Stimulating 2018 uIU/ml 0 the potential Tasneem hank CINTRON 74599 Hormone (TSH) 12:00am for biotin to falsely depress the TSH result when high levels of biotin surpassing the daily recommended dose are administered. Arterial Blood October 7.47 7.35-7.45 [facility], [address] [place] [address] 36 E pH 2018 mmol/L Hua CINTRON 74720 9:15pm Arterial Blood October 39.2 mmhg 35.0-45.0 [facility], [address] E Partial Pressure 2018 Wiley CINTRON 27387 CO2 9:15pm Arterial Blood October 51.3 mmhg 80-100 [facility], [address] [place] [address] E Partial Pressure 2018 Wiley CINTRON 12745 O2 9:15pm Arterial Blood October 28.1 mmhg 22.0-26.0 [facility], [address] [place] [address] E HCO3 2018 Hua CINTRON 39074 9:15pm Arterial Blood October 29.3 mmhg 23-27 [facility], [address] [place] [address] E Total CO2 2018 Hua CINTRON 58119 9:15pm Arterial Blood October 4.5 -2.4-2.3 [facility], [address] [place] [address] E Base Excess 2018 mmol/L Yanci CINTRON 94105 9:15pm Arterial Blood October 87 % 90-100 [facility], [address] [place] [address] E Oxygen 2018 Hua CINTRON 52619 Saturation 9:15pm Blood Gas Oxygen October 100 % [facility], [address] [place] [address] E Percent 2018 Hua Casillas 9:15pm Bryan Test October Y [facility], [address] [place] [address] E 2018 Hua CINTRON 34510 9:15pm Blood Gas October R/r [facility], [address] [place] [address] E Specimen Source 2018 Tasneem Casillas 9:15pm Microbiology Results Procedure Source Result Collection Result Result Performin g Date/Time Date/Time Comment Site Blood Culture Blood NO GROWTH November 13November 18, [facility], [address] [place] [address] E AFTER 5 DAYS 2018 9:46pm 2018 9:52pm Tasneem CINTRON 57600 Urine Culture Urine,Clean Multiple January 04December H [facility], [address] [place] [address] E Catch organisms, 2018 3:53pm 2018 Tasneemgabriel ryan CINTRON 47966 suggests 11:06am contaminatio n. Gram Stain Pleural February 09January [facility], [address] [place] [address] E Fluid, 2018 1:09am 2018 Yanci CINTRON 02852 Pleura,Rt 2:35am Lung Diagnostic Imaging Reports Report Dictated Date/Time Dictated By Status Radiology Report November 13, 2018 Bryan Vazquez MD completed 9:42pm [place] 678320 [facility] [address] [address] XRay R eport Sig ruth Patient: Ashanti Mac MR#: [id number] : 1950 Acct:[id number] Age/Sex: 68 / F ADM Date: 9 Loc: ER Attending Dr: Ordering Physician: Tomy Benavidez MD Date of Service: 11/13/18 Procedure(s): XR chest portable Accession Number(s): [id number] cc: Bryan Vazquez MD; Provider,Raymundo MD~ PROCEDURE: XR CHEST PORTABLE CLINICAL HISTORY: SOB COMPARISON: No exams were available fo r comparison FINDINGS: Opacification is present along the mid lower aspect of the right chest consistent with a moderate-sized pleural effusion. Underlying pneumonia is also considered. Cannot e xclude mass on the right. The left lung is clear. No evidence of CHF . The heart is obscured on the right by the opacified right lower lung zone. IMPRESSION: Dense opacification of the mid lower leonid ng zone on the right consistent with a moderate sized effusi on and possibly some underlying pneumonia and/or atelectatic change. A mass could also be obscured. Dictated by: Bryan Vazquez MD 11/14 05:23 Signed by: <Electronically signed by Bryan Vazquez MD in [place]> 11/14/2018 05:23 Radiology Report January 04, 2019 Bryan Vazquez MD completed 2:59pm [place] 678[address] [facility] [address] [address] [address] Scan Report Sig ruth Patient: Ashanti Mac MR#: [id number] : 1950 Acct:[id number] Age/Sex: 68 / F ADM Date: 9 Loc: ER Attending Dr: Ordering Physician: Ban Collazo MD Date of Service: 01/04/19 Procedure(s): CT head/brain wo con Accession Number(s): [id number] cc: Bryan Vazquez MD; Katheryn Villa APRN~ PROCEDURE: CT HEAD/BRAIN WO CON CLINICAL INDICATION: FALL Headache following injury, pain, contus ion/abrasion/hematoma. Bruising to the left forehead area. COMPARISON: No exams were available fo r comparison TECHNIQUE: Axial images obtained with sagittal and coronal reformats. All CT scans at the facility use one or more dose reduction, viz: automated exposure cont rol, ma/kV adjustment per patient size (including targeted exams where dose is matched to indication, i.e. head), or iterative re construction technique. FINDINGS: No midline shift, mass effect, intracra nial hemorrhage, hydrocephalus, or extra-axial fluid col lection is evident. The calvarium has an unremarkable appearanc e. No mastoid effusion. There is soft tissue swelling in the left fro ntal region of the scalp. No calvarial fracture. No sinus air-fluid level. IMPRESSION: 1. No acute intracranial findings. 2. Left frontal scalp hematoma Dictated by: Bryan Vazquez MD 01/04/2019 15:28 Electronically signed by Bryan Vazquez in [place] 01/04/2019 15:28 Radiology Report January 04, 2019 Bryan Vazquez MD completed 2:59pm [facility] [address] [facility] [address] [place] [address] [address] Scan Report Sig ruth Patient: Ashanti Mac MR#: [id number] : 1950 Acct:[id number] Age/Sex: 68 / F ADM Date: 9 Loc: ER Attending Dr: Ordering Physician: Bna Collazo MD Date of Service: 01/04/19 Procedure(s): CT cervical spine w con Accession Number(s): [id number] cc: Bryan Vazquez MD; Katheryn Villa APRN~ PROCEDURE: CT CERVICAL SPINE W CON CLINICAL INDICATION: FALL Neck pain following injury, contusion, bruising and swelling COMPARISON: No exams were available fo r comparison TECHNIQUE: Axial images obtained with sagittal and coronal reformats. All CT scans at the facility use one or more d ose reduction, viz: automated exposure control, ma/kV adjustment per patient size (including targeted exams where dose is matched to indication, i.e. head), or iterative reconstruction technique. Axial spiral CT scanning performed of t he cervical spine beginning at the base of the skull and continuing to the upper T-spine. 3-D multiplanar reconstruction with 3-D man ipulation of volumetric data set in image rendering was completed by the radiologist and/or technologist with the supervision of dejah mae radiologist on independent workstation. FINDINGS: Normal alignment. No acute fracture or dislocation. No l ytic or blastic change. There is mild degenerative disc disease at C4 -C5 C5-C6 and C6-C7. There is a large right-sided pleural effusion.. IMPRESSION: No acute fracture. Degenerative changes. Large right-sided pleural effusion Dictated by: Bryan Vazquez MD 01/04/2019 15:32 Electronically signed by Bryan Vazquez in [place] 01/04/2019 15:32 Radiology Report January 04, 2019 Bryan Vazquez MD completed 3:05pm [facility] [address] [facility] [address] [place] [address] [place] Scan Report Sig ruth Patient: Ashanti Mac MR#: [id number] : 1950 Acct:[id number] Age/Sex: 68 / F ADM Date: 9 Loc: ER Attending Dr: Ordering Physician: Ban Collazo MD Date of Service: 01/04/19 Procedure(s): CT chest wo con Accession Number(s): [id number] cc: Bryan Vazquez MD; Katheryn Villa APRN~ PROCEDURE: CT CHEST WO CON CLINICAL INDICATION: CONSOLIDATION NOT ED ON CT C-SPINE Large right effusion noted on C-spine C T scan. Fall with injury and pain COMPARISON: XR CHEST PORTABLE from TECHNIQUE: Axial images obtained with sagittal and coronal reformats. All CT scans at the facility use one or more dose reduction, viz: automated exposure cont rol, ma/kV adjustment per patient size (including targeted exams where dose is matched to indication, i.e. head), or iterative re construction technique. FINDINGS: There is dense coronary artery calcific ation with normal heart size. A pleural drain is present in the right posterior costophrenic sulcus. The drain enters the hemithora x in the right mid lung anterior laterally and drapes around to the posterior costophrenic sulcus. There is a moderate-sized righ t pleural effusion with compressive atelectatic change. The ef fusion does layer posteriorly. There are mild atelectatic changes on the right. Mild atelectatic changes are present in the left lung ba se. There is evidence of old granulomatous disease. Upper abdominal images show splenomegal y with the spleen measuring 17 cm in AP dimension. IMPRESSION: Moderate right-sided pleural effusion w ith pleural drain present with atelectatic changes in both lower lung zones Splenomegaly Dictated by: Bryan Vazquez MD 01/04/2019 15:35 Electronically signed by Bryan Vazquez in [place] 01/04/2019 15:35 Radiology Report January 04, 2019 Bryan Vazquez MD completed 3:28pm [address] [address] XRay R eport Sig ruth Patient: Ashanti Mac MR#: [id number] : 1950 Acct:[id number] Age/Sex: 68 / F ADM Date: 9 Loc: ER Attending Dr: Ordering Physician: Ban Collazo MD Date of Service: 01/04/19 Procedure(s): XR knee RT 3V Accession Number(s): [id number] cc: Bryan Vazquez MD; Kathreyn Villa APRN~ PROCEDURE: XR KNEE RT 3V CLINICAL INDICATION: Fall Posttraumatic pain COMPARISON: No exams were available fo r comparison FINDINGS: Status post total knee replacement with long intramedullary stems at the prosthesis of the distal femur and proximal tibia. No acute fracture or dislocation. There are dacia e faint small densities within the distal thigh anteriorly which may b e postsurgical. There are no previous exams available for comparison . There is some calcification in the proximal leg medially. IMPRESSION: No acute finding. Status post total kn ee replacement Dictated by: Bryan Vazquez MD 01/04/2019 16:39 Electronically signed by Bryan Vazquez in [place] 01/04/2019 16:39 Radiology Report January 04, 2019 Bryan Vazquez MD completed 3:28pm [address] [address] XRay R eport Sig ruth Patient: Ashanti Mac MR#: [id number] : 1950 Acct:[id number] Age/Sex: 68 / F ADM Date: 9 Loc: ER Attending Dr: Ordering Physician: Ban Collazo MD Date of Service: 01/04/19 Procedure(s): XR knee LT 3V Accession Number(s): [id number] cc: Bryan Vazquez MD; Katheryn Villa APRN~ PROCEDURE: XR KNEE LT 3V CLINICAL INDICATION: fall COMPARISON: No exams were available fo r comparison FINDINGS: No fracture or dislocation. No lytic or blastic change. There is normal mineralization. Status post total knee replacement Other findings:None. IMPRESSION: Total knee replacement, no acute findin g Dictated by: Bryan Vazquez MD 01/04/2019 16:45 Electronically signed by Bryan Vazquez in [place] 01/04/2019 16:45 Radiology Report January 04, 2019 Bryan Vazquez MD completed 3:28pm [facility] [address] [facility] [address] [address] XRay R eport Sig ruth Patient: Ashanti Mac MR#: [id number] : 1950 Acct:[id number] Age/Sex: 68 / F ADM Date: 9 Loc: ER Attending Dr: Ordering Physician: Ban Collazo MD Date of Service: 01/04/19 Procedure(s): XR shoulder RT min 2V Accession Number(s): [id number] cc: Bryan Vazquez MD; Katheryn Villa APRN~ PROCEDURE: XR SHOULDER RT MIN 2V CLINICAL INDICATION: FALL Posttraumatic pain COMPARISON: No exams were available fo r comparison FINDINGS: Osteoarthritic changes are present at t he acromioclavicular joint and glenohumeral joint with mild superior l ocation of the humeral head which may be seen with rotator cuff dis ease. No acute fracture or dislocation is evident. Moderate-sized right pleural effusion with pleural drain is present. IMPRESSION: No acute findings. Dictated by: Bryan Vazquez MD 01/04/2019 16:46 Electronically signed by Bryan Vazquez in [place] 01/04/2019 16:46 Radiology Report January 04, 2019 Bryan Vazquez MD completed 3:28pm [facility] [address] [facility] [address] [address] XRay R eport Sig ruth Patient: Ashanti Mac MR#: [id number] : 1950 Acct:[id number] Age/Sex: 68 / F ADM Date: 9 Loc: ER Attending Dr: Ordering Physician: Ban Collazo MD Date of Service: 01/04/19 Procedure(s): XR hand RT min 3V Accession Number(s): [id number] cc: Bryan Vazquez MD; Katheryn Villa APRN~ PROCEDURE: XR HAND RT MIN 3V CLINICAL INDICATION: FALL Posttraumatic pain COMPARISON: No exams were available fo r comparison FINDINGS: There are no previous exams available f or comparison. There are postsurgical changes at the distal radi us with a band of increased density/bone cement at the distal radiu s. The trapezium appears to have been removed or is not present wit h some cystic changes at the base of the 1st metacarpal. Postsurgic al changes also at the 2nd metacarpophalangeal junction. Osteoart hritic changes are noted. No obvious fracture or dislocation. IMPRESSION: Postsurgical changes with osteoarthriti s, no acute finding Dictated by: Bryan Vazquez MD 01/04/2019 16:48 Electronically signed by Bryan Vazquez in [place] 01/04/2019 16:48 Radiology Report February 08, 2019 Bryan Vazquez MD completed 11:08pm [address] [address] XRay R eport Sig ruth Patient: Ashanti Mac MR#: [id number] : 1950 Acct:[id number] Age/Sex: 68 / F ADM Date: 9 Loc: 2ND 204-[address]: Tomy Benavidez MD Ordering Physician: Tomy Benavidez MD Date of Service: 02/08/19 Procedure(s): XR chest AP Accession Number(s): [id number] cc: Bryan Vazquez MD; Katheryn Villa APRN~ PROCEDURE: XR CHEST AP CLINICAL HISTORY: weakness Weakness, cirrhosis COMPARISON: XR CHEST PORTABLE from CT CHEST WO CON from 01/04/2019 CT ABDOMEN PELVIS WO CON from 11/13/201 9 FINDINGS: The cardiomediastinal silhouette and pu lmonary vascularity are within normal limits. There is increased density of the right hemithorax consistent with underlying effusion with consolidation. The consolidation has improved compared to the most recent pr evious radiograph. A pleural drain is present along the right lung b ase. Left lung is clear No acute bony abnormalities. IMPRESSION: Right-sided effusion with underlying ai rspace disease with pleural drain present on the right. Dictated by: Bryan Vazquez MD 02/09/2019 04:37 Electronically signed by Bryan Vazquez in [place] 02/09/2019 04:37 Radiology Report February 08, 2019 Bryan Vazquez MD completed 10:52pm [facility] [address] [facility] [address] [place] [address] [address] Scan Report Sig ruth Patient: Ashanti Mac MR#: [id number] : 1950 Acct:[id number] Age/Sex: 68 / F ADM Date: 9 Loc: Attending Dr: Tomy Benavidez MD Ordering Physician: Tomy Benavidez MD Date of Service: 02/08/19 Procedure(s): CT abdomen pelvis wo con Accession Number(s): [id number] cc: Bryan Vazquez MD; Katheryn Villa APRN~ PROCEDURE: CT ABDOMEN PELVIS WO CON CLINICAL INDICATION: swollen/distended abd Mass, lump, or swelling, generalized we akness, Melgoza-cirrhosis Distended abdomen COMPARISON: CT CHEST WO CON from 01/04 TECHNIQUE: Axial images obtained with sagittal and coronal reformats. All CT scans at the facility use one or more dose reduction, viz: automated exposure cont rol, ma/kV adjustment per patient size (including targeted exams where dose is matched to indication, i.e. head), or iterative re construction technique. FINDINGS: LOWER THORAX: There is a moderate-sized right pleural effusion with compressive atelectasis of the right lo wer lobe. A pleural drain is present in the right lung base. The dr segovia enters from the anterior approach at the right 7th inte rspace anteriorly. There is trace left effusion. Coronary artery c alcifications are noted in there is mild pericardial thickening ABDOMEN & PELVIS: Cirrhotic appearing l iver with mild diffuse ascites and splenomegaly. The adrenal glands, pancreas, and kidneys have an unremarkable appearance. There is a small duodenal diverticulum. No intestinal obstruction or free air. There is mild edema of the a scending colon which may be seen with cirrhosis and portal hyperten lynette. Postsurgical changes are present at the sigmoid colon with a n anastomosis. Possible prior fundoplication of the stomach. No evid ence of appendicitis or diverticulitis Status post hysterectomy. There is dif fuse edema of the peritoneal fat which may be seen with cirrhosis an d portal hypertension. IMPRESSION: 1. Moderate-sized right pleural effusio n with atelectatic changes of the right lower lobe and pleural drain present on the right. 2. Cirrhotic appearing liver with splen omegaly and mild diffuse ascites consistent with portal hyperten lynette 3. Mild thickening of the ascending col on which may be seen with portal hypertension/ascites versus coli tis. Dictated by: Bryan Vazquez MD 02/09/2019 04:45 Electronically signed by Bryan Vazquez in [place] 02/09/2019 04:45 Health Concerns Concerns decline Advance Directives Advance Directive Response Recorded Date/Time Living Will No February 09, 2019 1:35am Does the patient have an No November 25 11:58am advanced directive on file? Living Will No November 25, 2018 11 :58am Chief Complaint and Reason for Visit Chief Complaint SOB New Patient [place] [id number] fell down sta ris,bump to head Severe Sepsis Reason for Visit Anemia Ascites Diabetes 1.5, managed as typ e 2 Elevated erythrocyte sedimen tation rate HCAP (healthcare-associated pneumonia) Hyponatremia Portal hypertension Retroperitoneal lymphadenopa thy Sepsis Splenomegaly MELGOZA (nonalcoholic steatohep atitis) Encounters Encounter Location(s) Arrival/Admit Date Discharge/Depart Date Provider(s) Departed [facility] Physician November 13, 2018 November 14, 2018 null Emergency Group-Emergency 9:08pm 1:12am Room Departed [facility] Physician November 24, 2018 November 24, 2018 Ester Villa Physician/Provi Group-Primary 4:00pm 4:08pm , SENIOR CATEGORY MANAGER lise Office Care-Reema Visit Departed [facility] Physician January 04, 2019 January 04, 2019 null Emergency Group-Emergency 1:25pm 5:50pm Room Discharged [facility] Physician February 09, February 09, 2019 Lalo More Inpatient Group-Second 2018 2:17am 6:12pm MD Reema Floor Registered [facility] Physician February 10, Tomy S Inpatient Group- 2018 3:09pm MD Reema Recent Diagnosis Onset Date Anemia Ascites Diabetes 1.5, managed as type 2 Elevated erythrocyte sedimentation rate HCAP (healthcare-associated pneumonia) Hyponatremia Portal hypertension Retroperitoneal lymphadenopathy Sepsis Splenomegaly MELGOZA (nonalcoholic steatohepatitis) Assessments See care plan goals Functional Status Observation Response Date Recorded Oral Care Ability With Assistance February 09, 2019 1:35am Bathing Ability Assistance x1 February 09, 2019 8:48am Eating (Feeding) Ability Assistance X1 February 09, 2019 1:35am Toileting Ability Assistance X1 February 09, 2019 1:35am Ambulation Ability Assistance x1 February 09, 2019 6:19pm Functional status ambulatory November 25, 2018 11 :58am high risk for fracture November 25, 2018 11:58am Oral Care Ability Independent November 25, 2018 11 :58am Bathing Ability Assistance x1 November 25, 2018 11 :58am Eating (Feeding) Ability Independent November 25 11:58am Toileting Ability Assistance X1 November 25, 2018 11 :58am Ambulation Ability Assistance x1 November 25, 2018 11 :58am Goals Acute Goals Nursing Diagnosis: Knowledge Deficit D isease/Condition Goal(s): Education of di sease process Instruction(s): Follow provider p rhett/instructions (See attached discharge education) Follow/up with primary care provider as instructed in discharge packet Immunizations Immunization Event Date Not Given Dose Beef Ribber Lot Vac cine Reason Number Number Informatio n Statement (VIS) Deta il Hepatitis A Mai Vaccine, adult 2018 dosage Mental Status Observation Response Date Recorded Comprehension Ability No Impairment February 09 11:00am Able to Read Yes February 09, 2019 1:35am Able to Write Yes February 09, 2019 1:35am Ability to Follow Directions Excellent February 092018 1:35am Eye Contact Maintains Eye Contact February 09 1:35am Oral Expression Ability No Impairment February 09 019 1:35am Medical Equipment No Medical Equipment Information available Insurance Providers Guarantor Ashanti Mac Address [address] [address] Contact Info. Home Phone: Payer Policy Id Coverage Id Subscriber's Subscriber Id Effective E xpiration Name Date Date Medicare [id number] Ashanti Mac [id number] Ashanti Mac [id number] Self Pay Self N/A Plan of Treatment Follow up as ordered by PCP pleur x drain continue home health for pt,ot and assisted follow up with dr in [place] Future Tests Future scheduled test information is unavailable Pending Tests Pending diagnostic test information is unavailable Future Visits Future appointment information is unavailable Referrals to Other Providers Reason for Referral Start Provider Provider Contact Provider Address Referral Date Information Admission to [facility] February 102018 [facility] Future Procedures Future procedure information is unavailable Future Medications Future medication information is unavailable Patient Instructions Nonalcoholic Fatty Liver Disease How to Prevent Falls Ascites DI for Pneumonia -- Adult DI for Ascites DI for Hyponatremia DI for Sepsis -- Adult Nonalcoholic Fatty Liver Disease Hyponatremia-Adult Social History Observation Status Date of Observation Not February 08, 2019 Assigned Sex Female Vital Signs Vital Reading Result Reference Range Collection Date/ Time Height 160.02 cm November 13 9:09pm Weight 77.11 kg November 13 9:09pm Body Temperature 99 [degF] 97.6-99.6 November 14 1:11am Heart Rate 82 /min 60-90 November 14 9 1:11am Respiratory rate 18 /min -November 14 1:11am Oxygen saturation by 98 % 95-100 October Pulse oximetry 12:44am BP Systolic 105 mm[Hg] 110-140 November 14 1:11am BP Diastolic 67 mm[Hg] 60-90 November 14 9 1:11am BMI (Body Mass Index) 30.1 kg/m2 October 9:09pm Body Temperature 97.8 [degF] 97.6-99.6 November 24 4:22pm Heart Rate 102 /min 60-90 November 24 9 4:22pm Respiratory rate 14 /min -November 24 4:22pm Oxygen saturation by 100 % 95-100 October Pulse oximetry 4:22pm BP Systolic 100 mm[Hg] 110-140 [place] [address], [address] 9 4:22pm BP Diastolic 60 mm[Hg] 60-90 November 24 9 4:22pm Height 165.1 cm January 04 2:20pm Weight 76.65 kg January 04 2:20pm Body Temperature 98.2 [degF] 97.6-99.6 January 04 5:48pm Heart Rate 71 /min 60-90 January 04 5:48pm Respiratory rate 18 /min -January 04 5:48pm Oxygen saturation by 96 % 95-100 December Pulse oximetry 2:20pm BP Systolic 124 mm[Hg] 110-140 January 04 5:48pm BP Diastolic 82 mm[Hg] 60-90 January 04 5:48pm BMI (Body Mass Index) 28.1 kg/m2 December 2:20pm Height 165 cm February 09, 2 019 11:53am Weight 77.64 kg February 09, 2 019 11:53am Body Temperature 98.4 [degF] 97.6-99.6 February 09, 2019 3:00pm Heart Rate 102 /min 60-90 February 09, 2 019 3:00pm Respiratory rate 17 /min -February 09, 2019 3:00pm Oxygen saturation by 94 % 95-100 February 092018 Pulse oximetry 3:00pm BP Systolic 108 mm[Hg] 110-140 February 09, 2 019 3:00pm BP Diastolic 68 mm[Hg] 60-90 February 09, 2 019 3:00pm BMI (Body Mass Index) 28.5 kg/m2 January 272018 11:53am
== END 2019-02-09 18:12 | disposition short-term general hospital (02) | DRG 442 ==
LOC: 2ND 21:52 → ER 21:52 → OBSVTOIN 02-09 02:17 → 2ND 02-09 02:18
PROVIDERS: ADMIT Emergency Medicine; ATTEND Emergency Medicine
CPT/HCPCS: 36415; 71010; 71045; 74176; 80048; 80053; 81001; 82140; 82962; 83605; 83735; 84436; 84443; 84484; 85007; 85025; 85610; 85651; 86140; 87040; 87070; 87075; 87077; 87186; 87205; 93005; 93306; 93970; 96365; 96367; 96372; 97110; 97116; 97161; 97165; 99285; J1956; J2543